=== PATIENT | female | born 1950 | race Caucasian/White ===

== ENCOUNTER 2018-06-13 11:55 | Emergency (ER) | payer OTHER ==
[2018-06-13] MEDS ORDERED: NS 500 ML IV ONE (12:40)
[2018-06-13] MEDS ORDERED: ASPIRIN 81 MG CHEWABLE TAB PO ONE (12:40)
--- NOTE | 2018-06-13 12:46 | EDPHY ---
H & P Time Seen by Provider: 06/13/18 12:30 HPI/ROS: CHIEF COMPLAINT: Palpitations, rapid heart rate HISTORY OF PRESENT ILLNESS: The patient is a 68-year-old female who presents emergency department with rapid heart rate. Patient was being evaluated for sleep issues in the doctor noted that she had a rapid heart rate. She was sent to the emergency department for further evaluation. Patient states that [place] returning [place] she has had intermittent fast heart rates. She denies a fluttering sensation. She has had no chest pain. No shortness of breath. No fevers or chills. No cough. No leg pain or swelling. Patient denies the use of stimulants. She uses Ambien regularly. REVIEW OF SYSTEMS: 10 systems were reveiwed and are negative with the exception of the elements mentioned in the history of present illness. Past Medical/Surgical History: Includes sleep issues Smoking Status: Never smoked Physical Exam: Vitals noted GENERAL: Well-appearing, in no acute distress, alert. HEENT: Eyes normal to inspection, normal pharynx, no signs of dehydration. NECK: Normal, supple. RESPIRATORY: Clear to auscultation bilaterally, no rales, rhonchi or wheezing. CVS: Regular rate and rhythm, no rubs, murmurs, or gallops. ABDOMEN: Soft, nontender, nondistended, no organomegaly. BACK: Normal to inspection, no CVA tenderness. SKIN: Normal color, no rash, warm, dry. No pallor. EXTREMITIES: No pedal edema, no calf tenderness, no Homans sign or cords, no joint swelling. NEURO/PSYCH: Alert and oriented, normal mood and affect, normal motor sensory exam. No obvious cranial nerve deficit. The patient's cardiac sonographer shows a sinus rhythm at 90. Constitutional: Initial Vital Signs Temperature (C) 36.4 C 06/13/18 12:00 Heart Rate 120 H 06/13/18 12:00 Respiratory Rate 18 06/13/18 12:00 Blood Pressure 145/84 H 06/13/18 12:00 O2 Sat (%) 96 06/13/18 12:00 O2 Delivery Mode Room Air Allergies/Adverse Reactions: amoxicillin Allergy (Verified 06/13/18 12:05) Medical Decision Making - Diagnostics Imaging Results: Imaging Impressions Chest X-Ray 06/13/18 12:40 Impression: No acute abnormality. ED Course/Re-evaluation: The in the emergency department I discussed possible etiologies with the patient. I answered all her questions. IV was placed. Laboratory studies, EKG and chest x-ray were ordered. Patient was given normal saline 500 mL IV for hydration. She was given aspirin 324 mg orally. EKG shows normal sinus rhythm, normal rate, normal axis, normal intervals. There are no ST or T-wave abnormalities. EKG is normal as interpreted by me. CBC is unremarkable. Chemistry panel is unremarkable. TSH is low. Troponin is negative. D-dimer is minimally elevated at 1.04. Due to the patient's noted tachycardia and elevated D-dimer CT angiogram was ordered. I discussed this with the patient. I answered all her questions. CT angiogram: Please refer the dictated report by Dr. Iniguez. No acute disease noted. I discussed results with the patient. She will have outpatient follow-up with Cardiology. She was given warnings prior to leaving. She will return with any worsening symptoms. I discussed the case with Cardiology to arrange close follow-up. Differential Diagnosis: My differential includes but is not limited to ACS, acute NE, dysrhythmia, atrial fibrillation, atrial flutter, thyroid disease, PE - Data Points Laboratory Results: Laboratory Results 06/13/18 12:45 06/13/18 12:45 06/13/18 06/13/18 06/13/18 12:56 12:45 12:45 WBC RBC Hgb Hct MCV MCH MCHC RDW Plt Count MPV Neut % (Auto) Lymph % (Auto) [place] % (Auto) Eos % (Auto) Baso % (Auto) Nucleat RBC Rel Count Absolute Neuts (auto) Absolute Lymphs (auto) Absolute Monos (auto) Absolute Eos (auto) Absolute Basos (auto) Absolute Nucleated RBC Immature Gran % Immature Gran # D-Dimer 1.04 ug/mLFEU H ug/mLFEU (0.00-0.50) Sodium 139 mEq/L mEq/L (135-145) Potassium 3.7 mEq/L mEq/L (3.5-5.2) Chloride 110 mEq/L mEq/L (97-110) Carbon Dioxide 21 mEq/l L mEq/l (22-31) Anion Gap 8 mEq/L mEq/L (6-14) BUN 13 mg/dL mg/dL (7-23) Creatinine 0.6 mg/dL mg/dL (0.6-1.0) Estimated GFR > 60 Glucose 115 mg/dL H mg/dL (70-100) Calcium 9.6 mg/dL mg/dL (8.5-10.4) POC Troponin I 0.00 ng/mL ng/mL (0.00-0.08) TSH < 0.015 uIU/mL L uIU/mL (0.465-4.680) 06/13/18 12:45 WBC 6.40 10^3/uL 10^3/uL (3.80-9.50) RBC 4.21 10^6/uL 10^6/uL (4.18-5.33) Hgb 12.2 g/dL L g/dL (12.6-16.3) Hct 36.1 % L % (38.0-47.0) MCV 85.7 fL fL (81.5-99.8) MCH 29.0 pg pg (27.9-34.1) MCHC 33.8 g/dL g/dL (32.4-36.7) RDW 12.7 % % (11.5-15.2) Plt Count 206 10^3/uL 10^3/uL (150-400) MPV 10.6 fL fL (8.7-11.7) Neut % (Auto) 64.1 % % (39.3-74.2) Lymph % (Auto) 27.3 % % (15.0-45.0) [place] % (Auto) 7.5 % % (4.5-13.0) Eos % (Auto) 0.6 % % (0.6-7.6) Baso % (Auto) 0.3 % % (0.3-1.7) Nucleat RBC Rel Count 0.0 % % (0.0-0.2) Absolute Neuts (auto) 4.10 10^3/uL 10^3/uL (1.70-6.50) Absolute Lymphs (auto) 1.75 10^3/uL 10^3/uL (1.00-3.00) Absolute Monos (auto) 0.48 10^3/uL 10^3/uL (0.30-0.80) Absolute Eos (auto) 0.04 10^3/uL 10^3/uL (0.03-0.40) Absolute Basos (auto) 0.02 10^3/uL 10^3/uL (0.02-0.10) Absolute Nucleated RBC 0.00 10^3/uL 10^3/uL (0-0.01) Immature Gran % 0.2 % % (0.0-1.1) Immature Gran # 0.01 10^3/uL 10^3/uL (0.00-0.10) D-Dimer Sodium Potassium Chloride Carbon Dioxide Anion Gap BUN Creatinine Estimated GFR Glucose Calcium POC Troponin I TSH Medications Given: Discontinued Medications Aspirin (Aspirin) 324 mg PO EDNOW ONE Stop: 06/13/18 12:41 Last Admin: 06/13/18 13:02 Dose: 324 mg Sodium Chloride (Ns) 500 mls @ 1,000 mls/hr IV EDNOW ONE PRN Reason: Protocol Stop: 06/13/18 13:09 Last Admin: 06/13/18 13:01 Dose: 500 mls Point of Care Test Results: Chemistry 06/13/18 12:56 POC Troponin I 0.00 ng/mL ng/mL (0.00-0.08) Departure - Departure Disposition: Home, Routine, Self-Care Clinical Impression: Palpitations Condition: Good Instructions: Heart Palpitations (ED) Additional Instructions: Return with increasing chest pain, shortness of breath or any other concerns. You need close follow-up with Cardiology. The contact information has been provided. Also follow up with her primary care physician. You have a mildly abnormal thyroid function test. This will need further evaluation as an outpatient. Referrals: ANANTH HERNANDEZ [Primary Care Provider] - 5-7 days, call for appt. [facility] [Provider Group] - 1-2 days without fail
[2018-06-13 13:13] LABS: PLATELET COUNT 206 10^3/uL (150-400)
[2018-06-13] MEDS ORDERED: IOPAMIDOL (ISOVUE 370) 100 ML BTL IV ONE (14:28)
[2018-06-13 15:39] VITALS: BP 132/50
--- NOTE | 2018-06-14 15:48 | CPEKG ---
Test Reason : OPEN Blood Pressure : / mmHG Vent. Rate : 084 BPM Atrial Rate : 084 BPM P-R Int : 142 ms QRS Dur : 087 ms QT Int : 385 ms P-R-T Axes : 045 062 047 degrees QTc Int : 456 ms Sinus rhythm Confirmed by Divya Nunes ([id number]) on 06/14/2018 3:47:55 PM Referred By: Divya Nunes Confirmed By:Divya Nunes
== END 2018-06-13 15:47 | disposition home or self-care (01) ==
DX: R00.2 Palpitations (principal)
CPT/HCPCS: 84484-ER; Q9967